=== PATIENT | male | born 1970 ===

== ENCOUNTER 2018-05-02 06:12 | Day surgery (SDC) | payer MEDICARE ==
[2018-05-02 07:13] VITALS: O2SAT 100
--- NOTE | 2018-05-02 07:59 | CP.SDSHP ---
Same Day Surgery H & P - History Proposed Procedure: COLONSCOPY Pre-Op Diagnosis: SEE NOTES - Previous Medical/Surgical History Cardiac: Hypertension Endocrine/Metabolic: Diabetes, Other Misc: Other Pain: 2.Mild Pain - Allergies Allergies: Allergies No Known Allergies Allergy (Verified 05/02/18 06:59) - Physical Exam General Appearance: N Vital Signs: Vital Signs 05/02/18 06:40 Temperature 98 F Pulse Rate 66 Respiratory 16 Rate Blood Pressure 139/91 H O2 Sat by Pulse 100 Oximetry Mental Status: Alert & Oriented x3 Neuro: WNL Heart: Other Lungs: WNL GI: WNL - {Optional Preform as Required} Breast: WNL Abdomen: Other Rectal: WNL Integument: WNL : WNL Ortho: WNL ENT: WNL - Impression Pt. Evaluated Today:Candidate for Anesthesia & Procedure: Yes - Date & Time Time: 07:58 Short Stay Discharge - Short Stay Discharge Admitting Diagnosis/Reason for Visit: SCREENING Disposition: HOME/ ROUTINE Referrals: Perico Vasquez MD [Primary Care Provider] -
[2018-05-02] MEDS ORDERED: Propofol 10 mg/ml Inj (20 ML) ONE (08:05)
[2018-05-02 08:28] VITALS: TEMP 98.7
[2018-05-02] MEDS ORDERED: Atropine 0.4 mg/ml Inj (1 mL) ONE (08:35)
[2018-05-02] MEDS ORDERED: Belladonna-Phenobarbital PO ONE (08:45)
[2018-05-02 08:52] VITALS: BP 133/67; PULSE 66; RESP 15
== END 2018-05-02 08:50 | disposition home or self-care (01) ==
LOC: C.ENDO 06:12
PROVIDERS: ATTEND Specialist
DX: Z12.11 Encounter for screening for malignant neoplasm of colon (principal); K52.9 Noninfective gastroenteritis and colitis, unspecified; K64.8 Other hemorrhoids; K64.4 Residual hemorrhoidal skin tags; E11.9 Type 2 diabetes mellitus without complications
CPT/HCPCS: 45380; 82948; 88305; J0461